=== PATIENT | female | born 1955 ===

== ENCOUNTER 2020-12-03 18:08 | Emergency (ER) | payer OTHER ==
[~2020-12-03] VITALS: Ht 157.5 cm; Wt 54.4 kg
== END 2020-12-03 22:16 | disposition home or self-care (01) ==
LOC: ER 18:08
DX: S82.092A Other fracture of left patella, initial encounter for closed fracture (principal); W18.09XA Striking against other object with subsequent fall, initial encounter; Y93.89 Activity, other specified; Y92.098 Other place in other non-institutional residence as the place of occurrence of the external cause; Y99.8 Other external cause status

== ENCOUNTER 2023-01-01 08:45 | Outpatient (CLI) | payer OTHER | END 2023-01-01 08:51 | disposition home or self-care (01) | LOC: TOM 08:45 | DX: R19.5 Other fecal abnormalities (principal) ==